=== PATIENT | female | born 1970 | race Caucasian/White ===

== ENCOUNTER → 2020-02-15 | Day surgery (SDC) | payer BC, OTHER ==
[~2020-02-15] VITALS: Ht 170 cm; Wt 84.0 kg
[~2020-02-15] MED LIST: DEXAMETHASONE 10 MG/ML (DECADRON) 1 ML VIAL ONE; LACTATED RINGERS 1,000 ML IV ONE; LIDOCAINE PF 2% 5 ML (XYLOCAINE) VIAL ONE; MIDAZOLAM 2 MG/2 ML (VERSED) VIAL ONE; OMEP20TA7 PO; ONDANSETRON 4 MG/2 ML (SDV) Z0FRAN ONE; SEVOFLURANE (ULTANE) 15 ML INHAL SOLN ONE; SUCCINYLCHOLINE INJ 100 MG/5 ML SYR ONE; SUCR1TAB36 PO; proPOfol 200 MG/20 ML (DIPRIVAN) VIAL IV ONE
--- OUTSIDE RECORDS SUMMARY | 2020-02-15 20:04 | XMS REPORT | Continuity of Care Document ---
Author Organization Unknown Address Unknown Phone Unavailable Allergies There is no data. Medications There is no data. Problems There is no data. Procedures There is no data. Results Test Result Range CBC - 11/22/19 08:44 WHITE BLOOD CELL COUNT 10.1 Thousand/uL 3.8-10.8 RED BLOOD CELL COUNT 5.04 Million/uL 3.8 0-5.10 HEMOGLOBIN 15.4 g/dL 11.7-15.5 HEMATOCRIT 46.8 % 35.0-45.0 MCV 92.9 fL 80.0-100.0 MCH 30.6 pg 27.0-33.0 MCHC 32.9 g/dL 32.0-36.0 RDW 12.7 % 11.0-15.0 PLATELET COUNT 322 Thousand/uL 140-400 MPV 9.1 fL 7.5-12.5 ABSOLUTE NEUTROPHILS 6525 cells/uL 1500- 7800 ABSOLUTE LYMPHOCYTES 2707 cells/uL 850-3 900 ABSOLUTE MONOCYTES 677 cells/uL 200-950 ABSOLUTE EOSINOPHILS 172 cells/uL 15-500 ABSOLUTE BASOPHILS 20 cells/uL 0-200 NEUTROPHILS 64.6 % NRG LYMPHOCYTES 26.8 % NRG MONOCYTES 6.7 % NRG EOSINOPHILS 1.7 % NRG BASOPHILS 0.2 % NRG COVID-19 ([facility]) - 01/07/20 09:54 PATIENT SYMPTOMATIC? NOT GIVEN NRG SOURCE: NOT GIVEN NRG OVERALL RESULT: NOT DETECTED NRG SARS-CoV-2 RNA: NEGATIVE NRG SINGH-SARS RNA: NEGATIVE NRG Encounters ACCT No. Visit Date/Time Discharge Status Pt. Type Provider Facility Loc./Unit Complaint [id number] 01/14/2020 13:00:00 01/14/2020 23:59: 59 CLS Outpatient NEYDA DENISE LAC [facility] [id number] 01/07/2020 09:20:00 Document Registration [id number] 11/22/2019 07:55:00 Document Registration [id number] 02/15/2020 19:49:[address] Emergency MARCIAL IGLESIAS, JACY [facility]
--- NOTE | 2020-02-15 20:45 | ED GI ---
General Chief Complaint: Foreign Body Stated Complaint: FOOD STUCK Source of Information: Patient Exam Limitations: No Limitations History of Present Illness Date Seen by Provider: February 15, 2020 Time Seen by Provider: 20:44 Initial Comments To ER with spelled potatoes stuck in the esophagus. History of EGD with dilatation 3 most recently 1 year ago before she moved here. She states this happens all the time but typically she can make herself vomit and will come back up. Tonight prior to arrival she was eating scallop potatoes. She has tried to drink several bottles at home and just regurgitates water but still has the food sensation stuck in her throat. Timing/Duration: 1-3 Hours Severity/Quality: Moderate Location: Epigastric Radiation: No Radiation Activities at Onset: None Associated Symptoms: Denies Symptoms Allergies and Home Medications Allergies Coded Allergies: No Known Drug Allergies (Unverified , 02/15/20) Patient Home Medication List Home Medication List Reviewed: Yes Review of Systems Review of Systems Constitutional: see HPI EENTM: No Symptoms Reported Respiratory: No Symptoms Reported Cardiovascular: No Symptoms Reported Gastrointestinal: See HPI Genitourinary: No Symptoms Reported Musculoskeletal: no symptoms reported Skin: no symptoms reported Psychiatric/Neurological: No Symptoms Reported Endocrine: No Symptoms Reported Past Vashrrw-Fidzeh-Ipepwc Hx Patient Social History Recent Foreign Travel: No Contact w/Someone Who Travel: No Physical Exam Vital Signs Capillary Refill : Height/Weight/BMI Height: '" Weight: lbs. oz. kg; BMI Method: General Appearance: WD/WN, no apparent distress Neck: non-tender, full range of motion Respiratory: no respiratory distress, no accessory muscle use Gastrointestinal: normal bowel sounds, soft Extremities: normal range of motion, non-tender Neurologic/Psychiatric: alert, normal mood/affect, oriented x 3 Skin: normal color, warm/dry Progress/Results/Core Measures Results/Orders My Orders Orders - PEREZ SILVA APRN Ed Iv/Invasive Line Start (02/15/20 20:41) Departure Impression Primary Impression: Foreign body in esophagus Qualified Codes: T18.108A - Unspecified foreign body in esophagus causing other injury, initial encounter Disposition: ADMITTED INPATIENT Condition: Stable Departure-Patient Inst. Decision time for Depature: 20:45 PEREZ SILVA APRN February 15, 2020 20:45
--- OUTSIDE RECORDS SUMMARY | 2020-02-15 20:59 | XMS REPORT | Continuity of Care Document ---
Author Organization Unknown Address Unknown Phone Unavailable Allergies Active Description Code Type Severity Reaction Onset Reported/Identified Relationship to Patient Clinical Status Yes No Known Drug Allergies [id number] Drug Allergy Unknown N/A 02/15/2020 Medications There is no data. Problems There [...] Status Pt. Type Provider Facility Loc./Unit Complaint [id number] 01/14/2020 13:00:00 01/14/2020 23:59: 59 [facility] Outpatient NEYDA DENISE LAC [facility] [id number] 01/07/2020 09:20:00 Document Registration [id number] 11/22/2019 07:55:00 Document Registration [id number] 02/15/2020 20:54:[address] Outpatient ELANA DORADO DO Via [facility] FOOD STUCK IN THROAT
--- NOTE | 2020-02-15 21:49 | Consultation - Surgery ---
History of Present Illness History of Present Illness Patient Consulted On(compa/time) 02/15/20 21:43 Date Seen by Provider: February 15, 2020 Time Seen by Provider: 21:44 History of Present Illness Seen and evaluate in ED. Consult requested by Evangelista Villanueva for food bolus. 49 year old female with longstanding history with dysphagia and esophageal stricture. Last dilated 1 year ago prior to moving here. Patient states that she has had increasing difficulty having food pass. Throws up or has to drink to get it to down. Last week has had at least 10 episodes. Tonight eating some potatoes got stuck. Can't get any liquids to pass, bringing them back up. Miguel Angel n/discomfort in epigastric region. No radiation of pain. Mild/moderate pain. Denies fever sweats chills shortness of breath or chest pain. Allergies and Home Medications Allergies Coded Allergies: No Known Drug Allergies (Unverified , 02/15/20) Patient Home Medication List Home Medication List Reviewed: Yes Past Ndlhyxt-Kagxlk-Dygakw Hx Patient Social History Alcohol Use: Occasionally Uses Recreational Drug Use: No Smoking Status: Never a Smoker Recent Foreign Travel: No Contact w/Someone Who Travel: No Recent Infectious Disease Expo: No Recent Hopitalizations: No Seasonal Allergies Seasonal Allergies: No Surgeries History of Surgeries: Yes (COLONSCOPY/EGD dilatation/sinus surgery) Surgeries: Section, Gallbladder, Hysterectomy, Tonsillectomy, Tubal Ligation Respiratory History of Respiratory Disorde: No Cardiovascular History of Cardiac Disorders: No Neurological History of Neurological Disord: No Genitourinary History of Genitourinary Disor: No Gastrointestinal History of Gastrointestinal Di: No Musculoskeletal History of Musculoskeletal Dis: No Endocrine History of Endocrine Disorders: No HEENT History of HEENT Disorders: No Cancer History of Cancer: No Psychosocial History of Psychiatric Problem: No Integumentary History of Skin or Integumenta: No Blood Transfusions History of Blood Disorders: No Reviewed Nursing Assessment Reviewed/Agree w Nursing PMH: Yes Family Medical History Significant Family History: No Pertinent Family Hx Review of Systems-General Constitutional: No chills, No diaphoresis EENTM: No hearing loss, No blurred vision, No nose pain, No throat pain, No throat swelling Respiratory: No dyspnea on exertion, No short of breath Cardiovascular: No chest pain Gastrointestinal: see HPI, abdominal pain Genitourinary: no symptoms reported; No decreased output Musculoskeletal: no symptoms reported; No back pain Skin: No change in color, No change in hair/nails Psychiatric/Neurological: Denies Anxiety, Denies Depressed, Denies Emotional Problems Physical Exam-General Problems Physical Exam Vital Signs Vital Signs - First Documented 02/15/20 20:35 Temp 36.1 Pulse 82 Resp 16 B/P (MAP) 127/95 (106) O2 Delivery Room Air Capillary Refill : Less Than 3 Seconds General Appearance: no apparent distress HEENT: PERRL/EOMI, normal ENT inspection Neck: non-tender, supple Respiratory: chest non-tender, no respiratory distress, no accessory muscle use Cardiovascular: regular rate, rhythm Gastrointestinal: non tender, soft, no organomegaly Rectal: deferred Back: no CVA tenderness Extremities: non-tender, normal inspection Neurologic/Psychiatric: alert, normal mood/affect, oriented x 3 Skin: normal color, warm/dry Lymphatic: no adenopathy Assessment/Plan Assessment/Plan Assessment/Plan esophageal obstruction secondary to food bolus discussed risks and benefits of egd and all other indicated procedures she understands and wishes to proceed. To or ELANA DORADO DO February 15, 2020 21:49
--- NOTE | 2020-02-15 21:49 | NUR ---
TO OR AT THIS TIME WITH REAL PHAM RN.
--- NOTE | 2020-02-15 23:18 | Progress Note-Post Operative ---
Post-Operative Progess Note Surgeon (s)/Bank Teller Machine Mechanic (s) Surgeon ELANA DORADO DO Bank Teller Machine Mechanic: na Pre-Operative Diagnosis esophageal obstruction, food bolus, history of stricture Post-Operative Diagnosis esophageal obstruction, food bolus, distal stricture, gastritis Procedure & Operative Findings Date of Procedure 02/15/20 Procedure Performed/Findings esophagogastroscopy, removal of food bolus, dilatation to 12 mm of esophagus Anesthesia Type general Estimated Blood Loss Estimated blood loss (mL): none Specimens/Packing Specimens Removed none ELANA DORADO DO February 15, 2020 23:18
[2020-02-15 23:22] VITALS: BP 140/99
--- NOTE | 2020-02-15 23:26 | Discharge Inst-Simple/Standard ---
Discharge Inst-Standard Discharge Medications New, Converted or Re-Newed RX: RX on Chart Patient Instructions/Follow Up Plan of Care/Instructions/FU: Nica - Tuesday Activity as Tolerated: Yes Discharge Diet: Liquid Diet (Till seen in office.) ELANA DORADO DO February 15, 2020 23:26
[2020-02-15 23:30] VITALS: BP 128/91
[2020-02-15 23:40] VITALS: BP 131/88
[2020-02-15 23:50] VITALS: BP 124/89
[2020-02-16] VITALS: BP 118/88
--- NOTE | 2020-02-16 00:08 | NUR ---
RETURN TO ROOM 8 FROM RECOVERY.
[2020-02-16 00:10] VITALS: BP 126/84
[2020-02-16 00:26] VITALS: BP 126/98
--- NOTE | 2020-02-16 00:26 | NUR ---
AWAKE, ALERT AND ORIENTED, 02 VIA RA. DENIES N/V. DENIES PAIN OR DISCOMFORT. D/C INSTRUCTIONS REVIEWED AND PT DENIES QUESTIONS OR CONCERNS.
--- NOTE | 2020-02-16 13:30 | OPERATIVE REPORT ---
DATE OF SERVICE: 02/15/2020 PREOPERATIVE DIAGNOSES: Esophageal obstruction secondary to food bolus and history of stricture. POSTOPERATIVE DIAGNOSES: Gastritis, hiatal hernia, esophageal stricture, esophageal obstruction secondary to food bolus. PROCEDURE: Esophagogastroscopy with removal of food bolus and dilatation to 12 mm. SURGEON: Elana Yousif DO ANESTHESIA: General. ESTIMATED BLOOD LOSS: None. COMPLICATIONS: None. INDICATIONS: The patient is a 49-year-old female with a longstanding history of difficulty swallowing and having a history of esophageal stricture. She has had this dilated previously last time being about a year ago before she moved to this area. The patient states she has had increasing difficulty swallowing food and was eating scalloped potatoes and they become lodge, unable to keep any secretions down. She understands risks and benefits of procedure and wished to proceed with procedure. Consent was signed in the chart. DESCRIPTION OF PROCEDURE: The patient was taken to the operating suite, intubated. Timeout was performed. Scope was inserted in the mouth, down the esophagus, which was dilated, had lots of fluid within it, which was then began to be suctioned. As we reached the distal portion, a lot of impacted appearing food particulate was present, which began to be suctioned and using a Morin Net, began to be evacuated. Prong grasper also was being used as well to remove retracting the particulate and then reinserting the scope until the scope was able to be passed through the strictured portion. The distal portion of the esophagus also appeared to be tortuous as well. The stomach had a fair amount of food particulate within it and the scope was unable to be passed through the pylorus due to the amount of food particulate in the stomach. Scope was retroflexed noting a hiatal hernia. No other pathology except for gastritis appearance in the stomach. Scope was then slowly retracted back. There was a narrowing in the distal portion, which was then dilated up to 12 mm and then the scope was then slowly retracted back until completely removed. The patient could have a component of achalasia to the distal esophagus as well. The patient will be started on omeprazole 20 mg daily and Carafate 1 gram four times a day. I will keep the patient on liquid diet and then we will see her on Tuesday, which is 3 days and get an esophagram to further evaluate. The patient will need further dilatation or depending on results of the esophagram, may consider injection of Botox. Job ID: [id number] DocumentID: [id number] Dictated Date: 02/16/2020 11:16:40 Funeral Pre Arrangement Specialist Date: 02/16/2020 13:29:31 Dictated By: ELANA YOUSIF DO
== END ==
LOC: ER 19:49 → ENDO 20:54
PROVIDERS: ATTEND Surgery
DX: T18.128A Food in esophagus causing other injury, initial encounter (principal); K22.2 Esophageal obstruction; K22.8 Other specified diseases of esophagus; K29.70 Gastritis, unspecified, without bleeding; K44.9 Diaphragmatic hernia without obstruction or gangrene

== ENCOUNTER → 2020-02-27 | Outpatient (CLI) | payer BC, OTHER ==
[~2020-02-27] MED LIST changes: +BARIUM for suspension 96% w/w (Vanilla Silq Medium Density) PO ONE; +BARIUM for suspension 98% w/w (Vanilla Silq High Density) PO ONE; -DEXAMETHASONE 10 MG/ML (DECADRON) 1 ML VIAL ONE; -LACTATED RINGERS 1,000 ML IV ONE; -LIDOCAINE PF 2% 5 ML (XYLOCAINE) VIAL ONE; -MIDAZOLAM 2 MG/2 ML (VERSED) VIAL ONE; -ONDANSETRON 4 MG/2 ML (SDV) Z0FRAN ONE; -SEVOFLURANE (ULTANE) 15 ML INHAL SOLN ONE; -SUCCINYLCHOLINE INJ 100 MG/5 ML SYR ONE; -proPOfol 200 MG/20 ML (DIPRIVAN) VIAL IV ONE
--- NOTE | 2020-02-27 11:10 | Diagnostic Imaging Report ---
INDICATION: Dysphagia. Patient ingested effervescent crystals as well as thin and thick barium and imaging of the esophagus was performed at multiple obliquities. 1 minute and 32 seconds of fluoroscopic time was utilized. The esophagus has a fairly smooth contour. No definite mass is identified. Patient does have a large sliding-type hiatal hernia. There is mild gastroesophageal reflux demonstrated. There is some persistent narrowing of the distal esophagus at the GE junction. This may represent a short stricture. IMPRESSION: Large sliding-type hiatal hernia. There is also a short area of focal narrowing of the distal esophagus near the GE junction, suggestive of a short stricture. Mild gastroesophageal reflux was demonstrated. Dictated by: Dictated on workstation # [id number]
== END ==
LOC: RAD 09:25
PROVIDERS: ATTEND Surgery
DX: K44.9 Diaphragmatic hernia without obstruction or gangrene (principal); R13.10 Dysphagia, unspecified
CPT/HCPCS: 74220

== ENCOUNTER 2020-03-25 05:46 | Outpatient (RCR) | payer BC ==
[~2020-03-25] VITALS: Ht 170 cm; Wt 84.0 kg
[~2020-03-25 05:46] MED LIST changes: -BARIUM for suspension 96% w/w (Vanilla Silq Medium Density) PO ONE; -BARIUM for suspension 98% w/w (Vanilla Silq High Density) PO ONE; +CETI10TA21 PO
== END 2020-03-25 15:39 | disposition home or self-care (01) ==
LOC: PREOP 05:46
PROVIDERS: ATTEND Surgery
DX: Z01.818 Encounter for other preprocedural examination (principal); Z11.59 Encounter for screening for other viral diseases
CPT/HCPCS: 87635

== ENCOUNTER 2020-03-28 08:10 | Day surgery (SDC) | payer BC ==
[~2020-03-28] VITALS: Ht 170 cm; Wt 84.0 kg
[2020-03-28] MEDS ORDERED: LACTATED RINGERS 1,000 ML IV ONE (08:15)
--- OUTSIDE RECORDS SUMMARY | 2020-03-28 08:16 | XMS REPORT | Continuity of Care Document ---
Author Organization Unknown Address Unknown Phone Unavailable Allergies Active Description Code Type Severity Reaction Onset Reported/Identified Relationship to Patient Clinical Status Yes No Known Drug Allergies [id number] Drug Allergy Unknown N/A 02/15/2020 Medications There is no data. Problems Date Dx Coded Attending Type Code Diagnosis Diagnosed By 02/20/2020 DORADO DO, ELANA D Ot K22. 2 ESOPHAGEAL OBSTRUCTION 02/20/2020 DORADO DO, ELANA D Ot K22. 8 OTHER SPECIFIED DISEASES OF ESOPHAGUS 02/20/2020 DORADO DO, ELANA D Ot K29. 70 GASTRITIS, UNSPECIFIED, WITHOUT BLEEDING 02/20/2020 DORADO DO, ELANA D Ot K44. 9 DIAPHRAGMATIC HERNIA WITHOUT OBSTRUCTION 02/20/2020 DORADO DO, ELANA D Ot T18.128A FOOD IN ESOPHAGUS CAUSING OTHER INJURY, 02/28/2020 DORADO DO, ELANA D Ot K22. 2 ESOPHAGEAL OBSTRUCTION 02/28/2020 DORADO DO, ELANA D Ot K22. 8 OTHER SPECIFIED DISEASES OF ESOPHAGUS 02/28/2020 DORADO DO, ELANA D Ot K29. 70 GASTRITIS, UNSPECIFIED, WITHOUT BLEEDING 02/28/2020 DORADO DO, ELANA D Ot K44. 9 DIAPHRAGMATIC HERNIA WITHOUT OBSTRUCTION 02/28/2020 DORADO DO, ELANA D Ot T18.128A FOOD IN ESOPHAGUS CAUSING OTHER INJURY, 02/29/2020 DORADO DO, ELANA D Ot K44. 9 DIAPHRAGMATIC HERNIA WITHOUT OBSTRUCTION 02/29/2020 DORADO DO, ELANA D Ot R13. 10 DYSPHAGIA, UNSPECIFIED 03/12/2020 DORADO DO, ELANA D Ot K22. 2 ESOPHAGEAL OBSTRUCTION 03/12/2020 DORADO DO, ELANA D Ot K22. 8 OTHER SPECIFIED DISEASES OF ESOPHAGUS 03/12/2020 DORADO DO, ELANA D Ot K29. 70 GASTRITIS, UNSPECIFIED, WITHOUT BLEEDING 03/12/2020 DORADO DO, ELANA D Ot K44. 9 DIAPHRAGMATIC HERNIA WITHOUT OBSTRUCTION 03/12/2020 DORADO DO, ELANA D Ot T18.128A FOOD IN ESOPHAGUS CAUSING OTHER INJURY, 03/17/2020 ELANA DORADO DO Ot K22. 2 ESOPHAGEAL OBSTRUCTION 03/17/2020 ELANA DORADO DO Ot K22. 8 OTHER SPECIFIED DISEASES OF ESOPHAGUS 03/17/2020 ELANA DORADO DO Ot K29. 70 GASTRITIS, UNSPECIFIED, WITHOUT BLEEDING 03/17/2020 ELANA DORADO DO Ot K44. 9 DIAPHRAGMATIC HERNIA WITHOUT OBSTRUCTION 03/17/2020 ELANA DORADO DO Ot T18.128A FOOD IN ESOPHAGUS CAUSING OTHER INJURY, Procedures There is no data. Results Test [...] RNA: NEGATIVE NRG SINGH-SARS RNA: NEGATIVE NRG Coronavirus SARS-CoV-2 SO 2018 0 08:07 Coronavirus Ab [Units/volume] in Serum Negative Negative Encounters ACCT No. Visit Date/Time Discharge Status Pt. Type Provider Facility Loc./Unit Complaint [id number] 01/14/2020 13:00:00 01/14/2020 23:59: 59 [facility] Outpatient NEYDA DENISE LAC [facility] [id number] 01/07/2020 09:20:00 Document Registration [id number] 11/22/2019 07:55:00 Document Registration [id number] 03/25/2020 05:46:00 15:39:00 DIS Outpatient ELANA DORADO DO [facility] PREOP EGD [id number] 02/27/2020 09:25:00 23:59:59 CLS Outpatient ELANA DORADO DO [facility] RAD DYSPHAGIA [id number] 02/15/2020 20:54:00 23:59:59 CLS Outpatient DORADO ELANA JACQUES [facility] ENDO FOOD STUCK IN THROAT [id number] 03/28/2020 14:00:00 P EN Preadmit ELANA DORADO DO Via [facility] ENDO HIATAL HERNIA/STRICTURE
[2020-03-28] MEDS ORDERED: LACTATED RINGERS 1,000 ML IV STA (08:22)
[2020-03-28 08:25] VITALS: BP 105/69
[2020-03-28] MEDS ORDERED: HURRICAINE EXT TUBE (BENZOCAINE) XX PRN (08:30)
[2020-03-28] MEDS ORDERED: proPOfol 200 MG/20 ML (DIPRIVAN) VIAL IV ONE ×2 (09:26→09:47)
[2020-03-28] MEDS ORDERED: MIDAZOLAM 2 MG/2 ML (VERSED) VIAL ONE (09:27)
--- NOTE | 2020-03-28 09:36 | Progress Note-Pre Operative ---
Pre-Operative Progress Note H&P Reviewed The H&P was reviewed, patient examined and no changes noted. Date Seen by Provider: Mar 28, 2020 Time Seen by Provider: :36 Date H&P Reviewed: Mar 28, 2020 Time H&P Reviewed: :36 Pre-Operative Diagnosis: hiatal hernia, esophageal stricture, dysphagia ELANA DORADO DO Mar 28, 2020 09:36
[2020-03-28 09:55] VITALS: BP 98/57
[2020-03-28 10:00] VITALS: BP 106/65
[2020-03-28 10:05] VITALS: BP 109/66
--- NOTE | 2020-03-28 10:11 | Progress Note-Post Operative ---
Post-Operative Progess Note Surgeon (s)/Java Consultant (s) Surgeon ELANA DORADO DO Java Consultant: na Pre-Operative Diagnosis hiatal hernia, esophageal stricture, dysphagia Post-Operative Diagnosis hiatal hernia, esophageal stricture, gastritis Procedure & Operative Findings Date of Procedure 03/28/20 Procedure Performed/Findings egd c biopsies, dilatation to 15 mm esophageal stricture Anesthesia Type per [facility] Estimated Blood Loss Estimated blood loss (mL): scant Specimens/Packing Specimens Removed antrum, body, ge ELANA DORADO DO Mar 28, 2020 10:11
[2020-03-28] MEDS ORDERED: PANT40TA2 PO (10:12)
--- NOTE | 2020-03-28 10:14 | Discharge Inst-Simple/Standard ---
Discharge Inst-Standard Discharge Medications New, Converted or Re-Newed RX: Transmitted to Pharmacy Patient Instructions/Follow Up Plan of Care/Instructions/FU: 2 weeks Nica Activity as Tolerated: Yes Discharge Diet: Regular Diet ELANA DORADO DO Mar 28, 2020 10:14
[2020-03-28 10:15] VITALS: BP 111/77
--- NOTE | 2020-03-28 10:26 | Anesthesia-General Post-Op ---
MAC Patient Condition Mental Status/LOC: Same as Preop Cardiovascular: Satisfactory Nausea/Vomiting: Absent Respiratory: Satisfactory Pain: Controlled Complications: Absent Post Op Complications Complications None Follow Up Care/Instructions Patient Instructions None needed. Anesthesiology Discharge Order Discharge Order Patient is doing well, no complaints, stable vital signs, no apparent adverse anesthesia problems. No complications reported per nursing. SYDNI MCKEON CRNA Mar 28, 2020 10:26
[2020-03-28 10:40] VITALS: BP 115/88
--- NOTE | 2020-03-28 12:05 | Anesthesia-General Post-Op ---
MAC Patient Condition Mental Status/LOC: Same as Preop Cardiovascular: Satisfactory Nausea/Vomiting: Absent Respiratory: Satisfactory Pain: Controlled Complications: Absent Post Op Complications Complications None Follow Up Care/Instructions Patient Instructions None needed. Anesthesiology Discharge Order Discharge Order Patient was seen after the procedure and she was doing well, no complaints, stable vital signs, no apparent adverse anesthesia problems. HITESH IBARRA DO Mar 28, 2020 12:05
--- NOTE | 2020-03-28 15:31 | OPERATIVE REPORT ---
DATE OF SERVICE: 03/28/2020 PREOPERATIVE DIAGNOSES: Dysphagia, history of esophageal stricture, hiatal hernia. POSTOPERATIVE DIAGNOSES: Hiatal hernia, gastritis, esophageal stricture. PROCEDURE: EGD with biopsies and dilatation of 15 mm. SURGEON: Elana Yousif DO ANESTHESIA: Per MDA. ESTIMATED BLOOD LOSS: Scant. COMPLICATIONS: None. INDICATIONS: The patient is a 49-year-old female with dysphagia, hiatal hernia and difficulty eating. She understands risks and benefits of procedure and wished to proceed with procedure. Consent was signed in the chart. DESCRIPTION OF PROCEDURE: The patient was taken to the endoscopy suite, placed in left lateral recumbent position. Timeout was performed. Scope was inserted in mouth, down the esophagus, stomach and into the duodenum without difficulty. There were no polyps, masses or ulcerations within the duodenum. Scope was slowly retracted the stomach where it was further insufflated. Erythematous changes throughout the stomach was present and some erosions. Biopsy of the antrum and body were obtained. Scope was retroflexed noting hiatal hernia. Scope was then returned to its normal position, slowly withdrawn to distal esophagus, which had some slight narrowing near the GE junction. Biopsy of GE junction was obtained. A 12 to 15 mm balloon was inserted down for dilatation starting at 12 mm and then increased to 15. The balloon was then removed and the esophagus was widely patent. Scope was then slowly retracted back to completely removed noting no other pathology. The patient tolerated procedure well without any complications. She was taken to recovery room in stable condition. RECOMMENDATIONS: The patient will be changed from omeprazole to Protonix 40 mg daily. We will continue on the Carafate and follow up in the office in 2 weeks. May need further dilatation. Job ID: [id number] DocumentID: [id number] Dictated Date: 03/28/2020 10:19:10 Matcher Leather Parts Date: 03/28/2020 15:29:55 Dictated By: ELANA YOUSIF DO
== END 2020-03-28 10:40 | disposition home or self-care (01) ==
LOC: ENDO 08:10
PROVIDERS: ATTEND Surgery
DX: K22.2 Esophageal obstruction (principal); K44.9 Diaphragmatic hernia without obstruction or gangrene; K29.70 Gastritis, unspecified, without bleeding; K21.0 Gastro-esophageal reflux disease with esophagitis; G43.909 Migraine, unspecified, not intractable, without status migrainosus; D64.9 Anemia, unspecified; Z90.710 Acquired absence of both cervix and uterus; Z82.3 Family history of stroke
CPT/HCPCS: 88305

== ENCOUNTER → 2020-05-16 | Day surgery (SDC) | payer BC, OTHER ==
[~2020-05-16] VITALS: Ht 170 cm; Wt 84.1 kg
[~2020-05-16] MED LIST changes: +HURRICAINE EXT TUBE (BENZOCAINE) XX PRN; +LACTATED RINGERS 1,000 ML IV ONE; +LACTATED RINGERS 1,000 ML IV STA; +PANT40TA2 PO
[2020-05-16 13:00] VITALS: BP 108/76
--- OUTSIDE RECORDS SUMMARY | 2020-05-16 15:25 | XMS REPORT | Continuity of Care Document ---
Author Organization Unknown Address Unknown Phone Unavailable Allergies Active Description Code Type Severity Reaction Onset Reported/Identified Relationship to Patient Clinical Status Yes No Known Drug Allergies [id number] Drug Allergy Unknown N/A 05/08/2020 Medications There is no data. Problems Date Dx Coded Attending Type Code Diagnosis Diagnosed By 09/01/1538 ELANA DORADO DO D Ot Z01.818 ENCOUNTER FOR OTHER PREPROCEDURAL EXAMIN 09/01/1538 [place] DO ELANA D Ot Z11. 59 ENCOUNTER FOR SCREENING FOR OTHER VIRAL 02/20/2020 [place] DO, ELANA D Ot K22. [...] K44. 9 DIAPHRAGMATIC HERNIA WITHOUT OBSTRUCTION 03/12/2020 [place] DO, ELANA D Ot T18.128A FOOD IN ESOPHAGUS CAUSING OTHER INJURY, 03/17/2020 [place] DO, ELANA D Ot K22. 2 ESOPHAGEAL OBSTRUCTION 03/17/2020 [place] DO, ELANA D Ot K22. 8 OTHER SPECIFIED DISEASES OF ESOPHAGUS 03/17/2020 [place] DO, ELANA D Ot K29. 70 GASTRITIS, UNSPECIFIED, WITHOUT BLEEDING 03/17/2020 [place] DO, ELANA D Ot K44. 9 DIAPHRAGMATIC HERNIA WITHOUT OBSTRUCTION 03/17/2020 [place] DO, ELANA D Ot T18.128A FOOD IN ESOPHAGUS CAUSING OTHER INJURY, 03/28/2020 [place] DO, ELNAA D Ot D64. 9 ANEMIA, UNSPECIFIED 03/28/2020 [place] DO, ELANA D Ot G43.909 MIGRAINE, UNSP, NOT INTRACTABLE, WITHOUT 03/28/2020 [place] DO, EALNA D Ot K21. 0 GASTRO-ESOPHAGEAL REFLUX DISEASE WITH ES 03/28/2020 [place] DO, ELANA D Ot K22. 2 ESOPHAGEAL OBSTRUCTION 03/28/2020 [place] DO, ELANA D Ot K29. 70 GASTRITIS, UNSPECIFIED, WITHOUT BLEEDING 03/28/2020 [facility], ELANA D Ot K44. 9 DIAPHRAGMATIC HERNIA WITHOUT OBSTRUCTION 03/28/2020 [facility], ELANA D Ot Z82. 3 FAMILY HISTORY OF STROKE 03/28/2020 [facility], ELANA D Ot Z90.710 ACQUIRED ABSENCE OF BOTH CERVIX AND UTER 04/03/2020 [place] DO, ELANA D Ot D64. 9 ANEMIA, UNSPECIFIED 04/03/2020 [place] DO, ELANA D Ot G43.909 MIGRAINE, UNSP, NOT INTRACTABLE, WITHOUT 04/03/2020 [place] DO, ELANA D Ot K21. 0 GASTRO-ESOPHAGEAL REFLUX DISEASE WITH ES 04/03/2020 [place] DO, ELANA D Ot K22. 2 ESOPHAGEAL OBSTRUCTION 04/03/2020 [place] DO, ELANA D Ot K29. 70 GASTRITIS, UNSPECIFIED, WITHOUT BLEEDING 04/03/2020 [place] DO, ELANA D Ot K44. 9 DIAPHRAGMATIC HERNIA WITHOUT OBSTRUCTION 04/03/2020 [place] DO, ELANA D Ot Z82. 3 FAMILY HISTORY OF STROKE 04/03/2020 [place] DO, ELANA D Ot Z90.710 ACQUIRED ABSENCE OF BOTH CERVIX AND UTER 04/05/2020 [place] DO, ELANA D Ot D64. 9 ANEMIA, UNSPECIFIED 04/05/2020 [place] DO, ELANA D Ot G43.909 MIGRAINE, UNSP, NOT INTRACTABLE, WITHOUT 04/05/2020 [place] DO, ELANA D Ot K21. 0 GASTRO-ESOPHAGEAL REFLUX DISEASE WITH ES 04/05/2020 [place] DO, ELANA D Ot K22. 2 ESOPHAGEAL OBSTRUCTION 04/05/2020 [place] DO, ELANA D Ot K29. 70 GASTRITIS, UNSPECIFIED, WITHOUT BLEEDING 04/05/2020 [place] DO, ELANA D Ot K44. 9 DIAPHRAGMATIC HERNIA WITHOUT OBSTRUCTION 04/05/2020 [place] DO, ELANA D Ot Z82. 3 FAMILY HISTORY OF STROKE 04/05/2020 [place] DO, ELANA D Ot Z90.710 ACQUIRED ABSENCE OF BOTH CERVIX AND UTER 04/14/2020 [place] DO, ELANA D Ot K22. 2 ESOPHAGEAL OBSTRUCTION 04/14/2020 [facility], ELANA D Ot K22. 8 OTHER SPECIFIED DISEASES OF ESOPHAGUS 04/14/2020 [place] DO, ELANA D Ot K29. 70 GASTRITIS, UNSPECIFIED, WITHOUT BLEEDING 04/14/2020 [place] DO, ELANA D Ot K44. 9 DIAPHRAGMATIC HERNIA WITHOUT OBSTRUCTION 04/14/2020 [place] DO, ELANA D Ot T18.128A FOOD IN ESOPHAGUS CAUSING OTHER INJURY, 04/14/2020 [place] DO, ELANA D Ot K44. 9 DIAPHRAGMATIC HERNIA WITHOUT OBSTRUCTION 04/14/2020 [place] DO, ELANA D Ot R13. 10 DYSPHAGIA, UNSPECIFIED 04/14/2020 [place] DO, ELANA D Ot K44. 9 DIAPHRAGMATIC HERNIA WITHOUT OBSTRUCTION 04/14/2020 [place] DO, ELANA D Ot R13. 10 DYSPHAGIA, UNSPECIFIED Procedures There is no data. Results Test [...] Coronavirus Ab [Units/volume] in Serum Negative Negative Coronavirus SARS-CoV-2 SO 2018 0 08:00 Coronavirus Ab [Units/volume] in Serum NOT DETECTE D Not Detecte Encounters ACCT No. Visit Date/Time Discharge Status Pt. Type Provider Facility Loc./Unit Complaint [id number] 01/14/2020 13:00:00 01/14/2020 23:59: 59 [facility] Outpatient NEYDA DENISE LAC [facility] [id number] 01/07/2020 09:20:00 Document Registration [id number] 11/22/2019 07:55:00 Document Registration [id number] 05/14/2020 05:34:00 10:45:00 DIS Outpatient DORADO ELANA JACQUES Via [facility] PREOP DYSPHAGIA [id number] 03/28/2020 08:10:00 10:40:00 DIS Outpatient DORADO ELANA JACQUES Via [facility] ENDO HIATAL HERNIA/STRICTURE [id number] 03/25/2020 05:46:00 15:39:00 DIS Outpatient ELANA DORADO DO Via [facility] PREOP EGD [id number] 02/27/2020 09:25:00 23:59:59 C[place] Out[place] ELA[place] JACQUES Via [facility] RAD DYSPHAGIA [id number] 02/15/2020 20:54:00 23:59:59 CLS Outpatient [place] ELANA JACQUES Via [facility] ENDO FOOD STUCK IN THROAT [id number] 05/16/2020 14:00:00 P EN Preadmit DORADO ELANA JACQUES Via [facility] ENDO DYSPHAGIA
== END ==
LOC: ENDO 12:55
PROVIDERS: ATTEND Surgery
DX: K44.9 Diaphragmatic hernia without obstruction or gangrene (principal); K22.2 Esophageal obstruction; K25.9 Gastric ulcer, unspecified as acute or chronic, without hemorrhage or perforation; K21.9 Gastro-esophageal reflux disease without esophagitis; D64.9 Anemia, unspecified; Z79.899 Other long term (current) drug therapy; Z80.0 Family history of malignant neoplasm of digestive organs; Z83.3 Family history of diabetes mellitus; Z82.49 Family history of ischemic heart disease and other diseases of the circulatory system

== ENCOUNTER 2020-05-20 11:54 | Day surgery (SDC) | payer BC, OTHER ==
[~2020-05-20] VITALS: Ht 170 cm; Wt 84.0 kg
[2020-05-20] VITALS (9 sets, daily range): BP systolic 104–119; BP diastolic 63–78
[~2020-05-20 11:54] MED LIST changes: -HURRICAINE EXT TUBE (BENZOCAINE) XX PRN; -LACTATED RINGERS 1,000 ML IV ONE; -LACTATED RINGERS 1,000 ML IV STA
[2020-05-20] MEDS ORDERED: LACTATED RINGERS 1,000 ML IV ONE (11:56)
[2020-05-20] MEDS ORDERED: LACTATED RINGERS 1,000 ML IV PRN ×2 (12:03→12:15)
[2020-05-20] MEDS ORDERED: HURRICAINE EXT TUBE (BENZOCAINE) XX PRN (12:15)
[2020-05-20] MEDS ORDERED: MIDAZOLAM 2 MG/2 ML (VERSED) VIAL ONE (12:20)
[2020-05-20] MEDS ORDERED: PROPOFOL INJECTION 50 ML IV ONE (12:20)
--- OUTSIDE RECORDS SUMMARY | 2020-05-20 13:20 | XMS REPORT | Continuity of Care Document ---
Author Author [employer] Organization [facility] Address Unknown Phone Unavailable Allergies Active Description Code Type Severity Reaction Onset Reported/Identified Relationship to Patient Clinical Status Yes No Known Drug Allergies [id number] Drug Allergy Unknown N/A 05/08/2020 Medications There is no data. Problems Date Dx Coded Attending Type Code Diagnosis Diagnosed By 09/01/1044 ELANA DORADO DO Ot R13. 10 DYSPHAGIA, UNSPECIFIED 09/01/1044 ELANA DORADO DO Ot Z01.812 ENCOUNTER FOR PREPROCEDURAL LABORATORY E 09/01/1044 [place] ELANA JACQUES Ot Z20.828 CONTACT W AND EXPOSURE TO OTH VIRAL COMM 09/01/1538 ELANA DORADO DO Ot Z01.818 ENCOUNTER FOR OTHER PREPROCEDURAL EXAMIN 09/01/1538 [place] ELANA JACQUES Ot Z11. 59 ENCOUNTER FOR SCREENING FOR OTHER VIRAL 02/20/2020 ELANA DORADO DO Ot K22. 2 ESOPHAGEAL OBSTRUCTION 02/20/2020 [place] ELANA JACQUES Ot K22. 8 OTHER SPECIFIED DISEASES OF ESOPHAGUS 02/20/2020 ELANA DORADO DO Ot K29. 70 GASTRITIS, UNSPECIFIED, WITHOUT BLEEDING 02/20/2020 ELANA DORADO DO Ot K44. 9 DIAPHRAGMATIC HERNIA WITHOUT OBSTRUCTION 02/20/2020 [place] ELANA JACQUES Ot T18.128A FOOD IN ESOPHAGUS CAUSING OTHER INJURY, 02/28/2020 [place] DOELANA Ot K22. 2 ESOPHAGEAL OBSTRUCTION 02/28/2020 [place] ELANA JACQUES Ot K22. 8 OTHER SPECIFIED DISEASES OF ESOPHAGUS 02/28/2020 [place] ELANA JACQUES D Ot K29. 70 GASTRITIS, UNSPECIFIED, WITHOUT BLEEDING 02/28/2020 [place] ELANA JACQUES D Ot K44. 9 DIAPHRAGMATIC HERNIA WITHOUT OBSTRUCTION 02/28/2020 [place] ELANA JACQUES D Ot T18.128A FOOD IN ESOPHAGUS CAUSING OTHER INJURY, 02/29/2020 [facility]. 9 DIAPHRAGMATIC HERNIA WITHOUT OBSTRUCTION 02/29/2020 [facility] R13. 10 DYSPHAGIA, UNSPECIFIED 03/12/2020 [facility] K22. 2 ESOPHAGEAL OBSTRUCTION 03/12/2020 [facility], ELANA Sanchez Ot K22. 8 OTHER SPECIFIED DISEASES OF ESOPHAGUS 03/12/2020 [facility] Ot K29. 70 GASTRITIS, UNSPECIFIED, WITHOUT BLEEDING 03/12/2020 [facility] K44. 9 DIAPHRAGMATIC HERNIA WITHOUT OBSTRUCTION 03/12/2020 [facility] Ot T18.128A FOOD IN ESOPHAGUS CAUSING OTHER INJURY, 03/17/2020 [facility] K22. 2 ESOPHAGEAL OBSTRUCTION 03/17/2020 [facility] K22. 8 OTHER SPECIFIED DISEASES OF ESOPHAGUS 03/17/2020 [facility] K29. 70 GASTRITIS, UNSPECIFIED, WITHOUT BLEEDING 03/17/2020 [facility] K44. 9 DIAPHRAGMATIC HERNIA WITHOUT OBSTRUCTION 03/17/2020 [facility], ELANA Sanchez Ot T18.128A FOOD IN ESOPHAGUS CAUSING OTHER INJURY, 03/25/2020 [facility] Ot Z01.818 ENCOUNTER FOR OTHER PREPROCEDURAL EXAMIN 03/25/2020 [facility] Z11. 59 ENCOUNTER FOR SCREENING FOR OTHER VIRAL 03/28/2020 [facility] D64. 9 ANEMIA, UNSPECIFIED 03/28/2020 [facility] Ot G43.909 MIGRAINE, UNSP, NOT INTRACTABLE, WITHOUT 03/28/2020 [facility] Ot K21. 0 GASTRO-ESOPHAGEAL REFLUX DISEASE WITH ES 03/28/2020 [facility] K22. 2 ESOPHAGEAL OBSTRUCTION 03/28/2020 [facility] Ot K29. 70 GASTRITIS, UNSPECIFIED, WITHOUT BLEEDING 03/28/2020 [facility] K44. 9 DIAPHRAGMATIC HERNIA WITHOUT OBSTRUCTION 03/28/2020 [facility] Z82. 3 FAMILY HISTORY OF STROKE 03/28/2020 [facility] Ot Z90.710 ACQUIRED ABSENCE OF BOTH CERVIX AND UTER 04/03/2020 [place] DO, ELANA D Ot D64. 9 ANEMIA, UNSPECIFIED 04/03/2020 [place] DO, ELANA D Ot G43.909 MIGRAINE, UNSP, NOT INTRACTABLE, WITHOUT 04/03/2020 [place] DO, ELANA D Ot K21. 0 GASTRO-ESOPHAGEAL REFLUX DISEASE WITH ES 04/03/2020 [place] DO, ELANA D Ot K22. 2 ESOPHAGEAL OBSTRUCTION 04/03/2020 [place] DO, ELANA D Ot K29. 70 GASTRITIS, UNSPECIFIED, WITHOUT BLEEDING 04/03/2020 [place] DO, ELANA D Ot K44. 9 DIAPHRAGMATIC HERNIA WITHOUT OBSTRUCTION 04/03/2020 [place] DO, ELANA D Ot Z82. 3 FAMILY HISTORY OF STROKE 04/03/2020 [place] DO, ELANA D Ot Z90.710 ACQUIRED ABSENCE OF BOTH CERVIX AND UTER 04/05/2020 [place] DO, ELANA D Ot D64. 9 ANEMIA, UNSPECIFIED 04/05/2020 [place] DO, ELANA D Ot G43.909 MIGRAINE, UNSP, NOT INTRACTABLE, WITHOUT 04/05/2020 [place] DO, ELANA D Ot K21. 0 GASTRO-ESOPHAGEAL REFLUX DISEASE WITH ES 04/05/2020 [place] DO, ELANA D Ot K22. 2 ESOPHAGEAL OBSTRUCTION 04/05/2020 [place] DO, ELANA D Ot K29. 70 GASTRITIS, UNSPECIFIED, WITHOUT BLEEDING 04/05/2020 [place] DO, ELANA D Ot K44. 9 DIAPHRAGMATIC HERNIA WITHOUT OBSTRUCTION 04/05/2020 [place] DO, ELANA D Ot Z82. 3 FAMILY HISTORY OF STROKE 04/05/2020 [place] DO, ELANA D Ot Z90.710 ACQUIRED ABSENCE OF BOTH CERVIX AND UTER 04/14/2020 [place] DO, ELANA D Ot K22. 2 ESOPHAGEAL OBSTRUCTION 04/14/2020 [place] DO, ELANA D Ot K22. 8 OTHER SPECIFIED DISEASES OF ESOPHAGUS 04/14/2020 [place] DO, ELANA D Ot K29. 70 GASTRITIS, UNSPECIFIED, WITHOUT BLEEDING 04/14/2020 [place] DO, ELANA D Ot K44. 9 DIAPHRAGMATIC HERNIA WITHOUT OBSTRUCTION 04/14/2020 [place] DO, ELANA D Ot T18.128A FOOD IN ESOPHAGUS CAUSING OTHER INJURY, 04/14/2020 [place] DO, ELANA D Ot K44. 9 DIAPHRAGMATIC HERNIA WITHOUT OBSTRUCTION 04/14/2020 [place] DO, ELANA D Ot R13. 10 DYSPHAGIA, UNSPECIFIED 04/14/2020 [place] DO, ELANA D Ot K44. 9 DIAPHRAGMATIC HERNIA WITHOUT OBSTRUCTION 04/14/2020 [place] DO, ELANA D Ot R13. 10 DYSPHAGIA, UNSPECIFIED 05/15/2020 [place] DO, ELANA D Ot K22. 2 ESOPHAGEAL OBSTRUCTION 05/15/2020 [place] DO, ELANA D Ot K22. 8 OTHER SPECIFIED DISEASES OF ESOPHAGUS 05/15/2020 [place] DO, ELANA D Ot K29. 70 GASTRITIS, UNSPECIFIED, WITHOUT BLEEDING 05/15/2020 [place] DO, ELANA D Ot K44. 9 DIAPHRAGMATIC HERNIA WITHOUT OBSTRUCTION 05/15/2020 [place] DO, ELANA D Ot T18.128A FOOD IN ESOPHAGUS CAUSING OTHER INJURY, 05/15/2020 [place] DO, ELANA D Ot K44. 9 DIAPHRAGMATIC HERNIA WITHOUT OBSTRUCTION 05/15/2020 [place] DO, ELANA D Ot R13. 10 DYSPHAGIA, UNSPECIFIED 05/15/2020 [place] DO, ELANA D Ot K22. 2 ESOPHAGEAL OBSTRUCTION 05/15/2020 [place] DO, ELANA D Ot K22. 8 OTHER SPECIFIED DISEASES OF ESOPHAGUS 05/15/2020 [place] DO, ELANA D Ot K29. 70 GASTRITIS, UNSPECIFIED, WITHOUT BLEEDING 05/15/2020 [place] DO, ELANA D Ot K44. 9 DIAPHRAGMATIC HERNIA WITHOUT OBSTRUCTION 05/15/2020 [place] DO, ELANA D Ot T18.128A FOOD IN ESOPHAGUS CAUSING OTHER INJURY, 05/15/2020 [place] DO, ELANA D Ot K44. 9 DIAPHRAGMATIC HERNIA WITHOUT OBSTRUCTION 05/15/2020 [place] DO, ELANA D Ot R13. 10 [...] Status Pt. Type Provider Facility Loc./Unit Complaint [id number] 01/14/2020 13:00:00 01/14/2020 23:59: 59 CLS Outpatient NEYDA DENISE [facility]AC [facility] [id number] 01/07/2020 09:20:00 Document Registration [id number] 11/22/2019 07:55:00 Document Registration [id number] 05/16/2020 12:55:00 23:59:59 CLS Outpatient DORADO ELANA JACQUES Via [facility] ENDO DYSPHAGIA [id number] 05/14/2020 05:34:00 020 10:45:00 DIS Outpatient DORADO ELANA JACQUES Via [facility] PREOP DYSPHAGIA [id number] 03/28/2020 08:10:00 020 10:40:00 DIS Outpatient DORADO ELANA JACQUES Via [facility] ENDO HIATAL HERNIA/STRICTURE [id number] 03/25/2020 05:46:00 020 15:39:00 DIS Outpatient DORADO ELANA JACQUES Via [facility] PREOP EGD [id number] 02/27/2020 09:25:00 23:59:59 CLS Outpatient DORADO ELANA JACQUES Via [facility] RAD DYSPHAGIA [id number] 02/15/2020 20:54:00 23:59:59 CLS Outpatient DORADO ELANA JACQUES Via [facility] ENDO FOOD STUCK IN THROAT [id number] 05/20/2020 12:30:00 P EN Preadmit ELANA DORADO DO Via [facility] ENDO DYSPHAGIA
--- NOTE | 2020-05-20 13:46 | Anesthesia-General Post-Op ---
MAC Patient Condition Mental Status/LOC: Same as Preop Cardiovascular: Satisfactory Nausea/Vomiting: Absent Respiratory: Satisfactory Pain: Controlled Complications: Absent Post Op Complications Complications None Follow Up Care/Instructions Patient Instructions None needed. Anesthesiology Discharge Order Discharge Order Patient is doing well, no complaints, stable vital signs, no apparent adverse anesthesia problems. No complications reported per nursing. JENNY URBINA POINTING MACHINE OPERATOR May 20, 2020 13:46
[2020-05-20] MEDS ORDERED: PANT40TA2 PO (14:02)
[2020-05-20] MEDS ORDERED: SUCR1TAB36 PO (14:03)
--- NOTE | 2020-05-20 14:03 | Discharge Inst-Simple/Standard ---
Discharge Inst-Standard Discharge Medications New, Converted or Re-Newed RX: Transmitted to Pharmacy Patient Instructions/Follow Up Plan of Care/Instructions/FU: 3 weeks Nica Activity as Tolerated: Yes Discharge Diet: Other Diet (gastritis diet) ELANA DORADO DO May 20, 2020 14:03
--- NOTE | 2020-05-20 14:05 | Progress Note-Post Operative ---
Post-Operative Progess Note Surgeon (s)/Mill Operator Helper (s) Surgeon ELANA DORADO DO Mill Operator Helper: na Pre-Operative Diagnosis hiatal hernia, esophageal stricture, dysphagia Post-Operative Diagnosis hiatal hernia esophageal strciture antral ulcer/erosions Procedure & Operative Findings Date of Procedure 05/20/20 Procedure Performed/Findings egd c biopsies and dilatation to 20 mm esophagus Anesthesia Type per commodity management specialist Estimated Blood Loss Estimated blood loss (mL): scant Specimens/Packing Specimens Removed antrum, antral ulcer ELANA DORADO DO May 20, 2020 14:05
--- NOTE | 2020-05-20 21:22 | OPERATIVE REPORT ---
DATE OF SERVICE: 05/20/2020 PREOPERATIVE DIAGNOSES: Hiatal hernia, esophageal stricture, dysphagia. POSTOPERATIVE DIAGNOSES: Hiatal hernia, esophageal stricture, and antral erosions and antral ulcer. PROCEDURE: EGD with biopsies and dilatation to 20 mm. SURGEON: Elana Yousif DO ANESTHESIA: Per TAPE FASTENER MACHINE OPERATOR. ESTIMATED BLOOD LOSS: None. COMPLICATIONS: None. INDICATIONS: The patient is a 49-year-old female with continued dysphagia, esophageal stricture. She understands risks and benefits of procedure and wished to proceed with procedure. Consent was signed in the chart. DESCRIPTION OF PROCEDURE: The patient was taken to the endoscopy suite, placed in left lateral recumbent position. Timeout was performed. Scope was inserted in mouth, down the esophagus, stomach and into the duodenum without difficulty. There were no polyps, masses or ulcerations within the duodenum. Scope was slowly retracted back into the stomach where it was further insufflated. Antrum had multiple erosions and also an ulceration present. Biopsy of the antrum and a biopsy of the ulcer was obtained. Erythematous changes present throughout the antrum as well. Scope was retroflexed noting hiatal hernia, no other pathology noted. Scope was returned to its normal position, slowly withdrawn until in the distal esophagus demonstrating the area of his esophageal stricture, which has previously been dilated. The dilatation was then performed all the way up to 20 mm or 60[place]. Once this was dilated, the scope was then slowly retracted back until completely remove noting no other pathology. The patient tolerated procedure well without any complications. She was taken to the recovery room in stable condition. RECOMMENDATIONS: The patient could to be on Protonix 40 mg daily and Carafate 1 gram four times a day. We will have her follow up in two to three weeks to see how her symptoms are doing. Await biopsy results as well. Job ID: [id number] DocumentID: [id number] Dictated Date: 05/20/2020 16:38:18 Senior Graphic Designer Date: 05/20/2020 21:22:07 Dictated By: ELANA YOUSIF DO
== END 2020-05-20 14:45 | disposition home or self-care (01) ==
LOC: ENDO 11:54
PROVIDERS: ATTEND Surgery
DX: K22.2 Esophageal obstruction (principal); K44.9 Diaphragmatic hernia without obstruction or gangrene; K25.9 Gastric ulcer, unspecified as acute or chronic, without hemorrhage or perforation; K31.9 Disease of stomach and duodenum, unspecified; K43.2 Incisional hernia without obstruction or gangrene

== ENCOUNTER 2020-05-21 17:33 | Emergency (ER) | payer BC ==
[~2020-05-21 17:33] MED LIST changes: +FAMOTIDINE 20MG/2ML IV (PEPCID) ONE; +GLUCAGON EMERGENCY 1 MG/KIT ONE; +ONDANSETRON 4 MG/2 ML (SDV) Z0FRAN ONE
== END 2020-05-21 18:45 | disposition home or self-care (01) ==
LOC: EDUNIT# 17:33 → ER 17:33
DX: K22.2 Esophageal obstruction (principal)
CPT/HCPCS: 96374; 96375

== ENCOUNTER → 2021-05-23 | Outpatient (CLI) | payer BC ==
[~2021-05-23] MED LIST changes: -CETI10TA21 PO; +CETI10TA49 PO; -FAMOTIDINE 20MG/2ML IV (PEPCID) ONE; -GLUCAGON EMERGENCY 1 MG/KIT ONE; -ONDANSETRON 4 MG/2 ML (SDV) Z0FRAN ONE
[2021-05-23 11:02] LABS: BASOPHILS % (AUTO) 0 % (0-10); EOSINOPHILS # (AUTO) 0.1 10^3/uL (0.0-0.3); EOSINOPHILS % (AUTO) 2 % (0-10); HEMATOCRIT 45 % (35-52); HEMOGLOBIN 14.2 g/dL (11.5-16.0); LYMPHOCYTES # (AUTO) 2.1 10^3/uL (1.0-4.0); LYMPHOCYTES % (AUTO) 33 % (12-44); MEAN CORPUSCULAR HEMOGLOBIN 28 pg (25-34); MEAN CORPUSCULAR HGB CONC 32 g/dL (32-36); MEAN CORPUSCULAR VOLUME 87 fL (80-99); MEAN PLATELET VOLUME 8.7 fL (9.0-12.2); MONOCYTES # (AUTO) 0.5 10^3/uL (0.0-1.0); MONOCYTES % (AUTO) 9 % (0-12); NEUTROPHILS # (AUTO) 3.6 10^3/uL (1.8-7.8); NEUTROPHILS % (AUTO) 56 % (42-75); PLATELET COUNT 391 10^3/uL (130-400); WHITE BLOOD COUNT 6.4 10^3/uL (4.3-11.0)
[2021-05-23 11:11] LABS: POTASSIUM 3.8 MMOL/L (3.6-5.0)
[2021-05-23 11:12] LABS: CALCIUM 9.3 MG/DL (8.5-10.1)
[2021-05-23 11:14] LABS: TOTAL PROTEIN 7.3 GM/DL (6.4-8.2)
[2021-05-23 11:16] LABS: BILIRUBIN,TOTAL 0.4 MG/DL (0.1-1.0)
[2021-05-23 11:17] LABS: CREATININE SERUM 0.89 MG/DL (0.60-1.30)
== END ==
LOC: LAB 10:40
PROVIDERS: ATTEND Internal Medicine
DX: D50.9 Iron deficiency anemia, unspecified (principal)
CPT/HCPCS: 36415; 80053; 80061; 85025

== ENCOUNTER → 2021-06-01 | Outpatient (CLI) | payer BC ==
[~2021-06-01] VITALS: Ht 170 cm; Wt 84.0 kg
[~2021-06-01] MED LIST changes: +KETOROLAC 60 MG/2 ML VIAL IM ONE; +PROMETHAZINE INJ 25 MG/ML (PHENERGAN) AMP IM ONE; +PROMETHAZINE INJ 25 MG/ML (PHENERGAN) AMP ONE; +diphenhydrAMINE 50 MG/ML INJ (BENADRYL) IM ONE
[2021-06-01 08:25] VITALS: BP 119/72
== END ==
LOC: SDC 08:17
PROVIDERS: ATTEND Emergency Medicine
DX: G43.909 Migraine, unspecified, not intractable, without status migrainosus (principal)
CPT/HCPCS: 96372

== ENCOUNTER 2022-01-21 13:01 | Outpatient (RCR) | payer BC ==
[~2022-01-21 13:01] MED LIST changes: +FERRIC CARBOXYMALTOSE INJ 750 MG in NS (IVPB) 250 ML IV SCH; -KETOROLAC 60 MG/2 ML VIAL IM ONE; +OMEP20TA56 PO; -OMEP20TA7 PO; -PROMETHAZINE INJ 25 MG/ML (PHENERGAN) AMP IM ONE; -PROMETHAZINE INJ 25 MG/ML (PHENERGAN) AMP ONE; -diphenhydrAMINE 50 MG/ML INJ (BENADRYL) IM ONE
== END 2022-01-30 | disposition home or self-care (01) ==
LOC: ONC 13:01
PROVIDERS: ATTEND Internal Medicine Hematology & Oncology
DX: D50.9 Iron deficiency anemia, unspecified (principal)
CPT/HCPCS: 96365; 99214

== ENCOUNTER 2022-04-16 15:03 | Outpatient (RCR) | payer BC ==
[~2022-04-16 15:03] MED LIST changes: -FERRIC CARBOXYMALTOSE INJ 750 MG in NS (IVPB) 250 ML IV SCH
[2022-04-16 15:16] LABS: BASOPHILS % (AUTO) 0 % (0-10); EOSINOPHILS # (AUTO) 0.1 10^3/uL (0.0-0.3); EOSINOPHILS % (AUTO) 1 % (0-10); HEMATOCRIT 44 % (35-52); HEMOGLOBIN 14.8 g/dL (11.5-16.0); LYMPHOCYTES # (AUTO) 2.6 X 10^3 (1.0-4.0); LYMPHOCYTES % (AUTO) 29 % (12-44); MEAN CORPUSCULAR HEMOGLOBIN 29 pg (25-34); MEAN CORPUSCULAR HGB CONC 33 g/dL (32-36); MEAN CORPUSCULAR VOLUME 87 fL (80-99); MEAN PLATELET VOLUME 8.7 fL (9.0-12.2); MONOCYTES # (AUTO) 0.6 X 10^3 (0.0-1.0); MONOCYTES % (AUTO) 6 % (0-12); NEUTROPHILS # (AUTO) 5.6 X 10^3 (1.8-7.8); NEUTROPHILS % (AUTO) 63 % (42-75); PLATELET COUNT 429 10^3/uL (130-400); WHITE BLOOD COUNT 8.9 10^3/uL (4.3-11.0)
== END 2022-05-02 | disposition home or self-care (01) ==
LOC: ONC 15:03
PROVIDERS: ATTEND Internal Medicine Hematology & Oncology
DX: D50.9 Iron deficiency anemia, unspecified (principal)
CPT/HCPCS: 36415; 82728; 83540; 83550; 85025

== ENCOUNTER 2022-10-26 08:50 | Outpatient (RCR) | payer BC ==
[2022-10-20 08:15] LABS: BASOPHILS % (AUTO) 0 % (0-10); EOSINOPHILS # (AUTO) 0.1 10^3/uL (0.0-0.3); EOSINOPHILS % (AUTO) 2 % (0-10); HEMATOCRIT 37 % (35-52); HEMOGLOBIN 11.2 g/dL (11.5-16.0); LYMPHOCYTES # (AUTO) 2.1 10^3/uL (1.0-4.0); LYMPHOCYTES % (AUTO) 28 % (12-44); MEAN CORPUSCULAR HEMOGLOBIN 24 pg (25-34); MEAN CORPUSCULAR HGB CONC 31 g/dL (32-36); MEAN CORPUSCULAR VOLUME 77 fL (80-99); MEAN PLATELET VOLUME 8.4 fL (9.0-12.2); MONOCYTES # (AUTO) 0.5 10^3/uL (0.0-1.0); MONOCYTES % (AUTO) 7 % (0-12); NEUTROPHILS # (AUTO) 4.6 10^3/uL (1.8-7.8); NEUTROPHILS % (AUTO) 62 % (42-75); PLATELET COUNT 510 10^3/uL (130-400); WHITE BLOOD COUNT 7.4 10^3/uL (4.3-11.0)
[2022-10-20 08:41] LABS: ALBUMIN 3.7 GM/DL (3.2-4.5); BILIRUBIN,TOTAL 0.3 MG/DL (0.1-1.0); CALCIUM 8.7 MG/DL (8.5-10.1); CREATININE SERUM 0.89 MG/DL (0.60-1.30); POTASSIUM 3.8 MMOL/L (3.6-5.0); TOTAL PROTEIN 6.7 GM/DL (6.4-8.2)
== END 2022-11-02 | disposition home or self-care (01) ==
LOC: ONC 08:50
PROVIDERS: ATTEND Internal Medicine Hematology & Oncology
DX: D50.9 Iron deficiency anemia, unspecified (principal)
CPT/HCPCS: 36415; 80053; 82728; 83540; 83550; 85025; 99213

== ENCOUNTER 2022-12-23 08:23 | Outpatient (RCR) | payer BC ==
[~2022-12-23 08:23] MED LIST changes: +FERRIC CARBOXYMALTOSE INJ 750 MG in NS (IVPB) 250 ML IV SCH
== END 2022-12-31 | disposition home or self-care (01) ==
LOC: ONC 08:23
PROVIDERS: ATTEND Internal Medicine Hematology & Oncology
DX: D50.9 Iron deficiency anemia, unspecified (principal)
CPT/HCPCS: 36415; 96365

== ENCOUNTER 2023-02-16 08:00 | Outpatient (RCR) | payer BC ==
[~2023-02-16 08:00] MED LIST changes: -FERRIC CARBOXYMALTOSE INJ 750 MG in NS (IVPB) 250 ML IV SCH
[2023-02-16 09:07] LABS: BASOPHILS % (AUTO) 0 % (0-10); EOSINOPHILS # (AUTO) 0.2 10^3/uL (0.0-0.3); EOSINOPHILS % (AUTO) 2 % (0-10); HEMATOCRIT 44 % (35-52); HEMOGLOBIN 14.5 g/dL (11.5-16.0); LYMPHOCYTES % (AUTO) 31 % (12-44); MEAN CORPUSCULAR HEMOGLOBIN 28 pg (25-34); MEAN CORPUSCULAR HGB CONC 33 g/dL (32-36); MEAN CORPUSCULAR VOLUME 86 fL (80-99); MEAN PLATELET VOLUME 8.8 fL (9.0-12.2); MONOCYTES # (AUTO) 0.4 10^3/uL (0.0-1.0); MONOCYTES % (AUTO) 6 % (0-12); NEUTROPHILS # (AUTO) 3.8 10^3/uL (1.8-7.8); NEUTROPHILS % (AUTO) 60 % (42-75); PLATELET COUNT 375 10^3/uL (130-400); WHITE BLOOD COUNT 6.4 10^3/uL (4.3-11.0)
[2023-02-16 09:24] LABS: ALBUMIN 3.9 GM/DL (3.2-4.5); BILIRUBIN,TOTAL 0.3 MG/DL (0.1-1.0); CALCIUM 9.3 MG/DL (8.5-10.1); CREATININE SERUM 0.9 MG/DL (0.60-1.30); TOTAL PROTEIN 6.7 GM/DL (6.4-8.2)
== END 2023-03-02 | disposition home or self-care (01) ==
LOC: ONC 08:00
PROVIDERS: ATTEND Internal Medicine Hematology & Oncology
DX: D50.9 Iron deficiency anemia, unspecified (principal)
CPT/HCPCS: 80053; 82728; 83540; 83550; 85025

== ENCOUNTER 2023-03-24 08:23 | Outpatient (RCR) | payer BC ==
[2023-03-10] MEDS: FERRIC CARBOXYMALTOSE INJ 750 MG in NS (IVPB) 250 ML IV SCH (09:18)
[2023-03-10 09:19] VITALS: BP 119/78
[~2023-03-24] VITALS: Ht 170 cm; Wt 94.0 kg
[~2023-03-24 08:23] MED LIST changes: +FERRIC CARBOXYMALTOSE INJ 750 MG in NS (IVPB) 250 ML IV SCH
[2023-03-24 08:30] VITALS: BP 117/72
[2023-03-24] MEDS: FERRIC CARBOXYMALTOSE INJ 750 MG in NS (IVPB) 250 ML IV SCH (08:35)
== END 2023-04-01 | disposition home or self-care (01) ==
LOC: ONC 08:23
PROVIDERS: ATTEND Internal Medicine Hematology & Oncology
DX: D50.9 Iron deficiency anemia, unspecified (principal)
CPT/HCPCS: 36415; 96365